=== PATIENT | female | born 1980 | race Caucasian/White ===

== ENCOUNTER 2020-06-09 17:07 | Emergency (ER) | payer BC, SELFPAY ==
[2020-06-09 17:13] VITALS: BP 135/81; PULSE 93; RESP 16; TEMP 37.2; O2SAT 100; BMI 32.0
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
[2020-06-09 18:13] VITALS: BP 132/70; PULSE 80; RESP 16; TEMP 37; O2SAT 98
== END 2020-06-09 18:14 | disposition home or self-care (01) ==
PROVIDERS: Emergency Provider Emergency Medicine
DX: S40.212A Abrasion of left shoulder, initial encounter (principal); S90.512A Abrasion, left ankle, initial encounter; S50.812A Abrasion of left forearm, initial encounter; V49.3XXA Car occupant (driver) (passenger) injured in unspecified nontraffic accident, initial encounter; Y92.414 Local residential or business street as the place of occurrence of the external cause; F17.210 Nicotine dependence, cigarettes, uncomplicated
CPT/HCPCS: 99281